=== PATIENT | female | born 1985 | race Caucasian/White ===

== ENCOUNTER → 2016-03-25 | Outpatient (CLI) | payer OTHER ==
--- NOTE | 2016-03-25 16:29 | DX ---
PA and Lateral Chest History: Chronic cough in a 31-year-old female; no previous studies are available for comparison. Findings: The heart and mediastinum are normal. Pulmonary vascularity is normal. The lungs are clear. There is no pleural fluid. A pneumothorax is not identified. Impression: Chest negative for acute abnormality.
== END ==
LOC: FIMAGING 16:00
PROVIDERS: ATTEND Physician Assistant
DX: R05 Cough (principal)

== ENCOUNTER 2016-04-18 13:55 | Emergency (ER) | payer OTHER ==
--- NOTE | 2016-04-18 14:15 | CPEKG ---
Heart Rate: 74 RR Interval: 811 P-R Interval: 152 QRSD Interval: 74 QT Interval: 376 QTC Interval: 418 P Paden: 27 QRS Paden: 37 T Wave Paden: 37 EKG Severity - NORMAL ECG - EKG Impression: SINUS RHYTHM Preliminary Awaiting MD Review
[2016-04-18 14:17] VITALS: TEMP 97.7
[2016-04-18 14:56] LABS: % IMMATURE GRANULYOCYTES 0.2 % (0.0-1.1); ABSOLUTE IMMATURE GRANULOCYTES 0.01 10^3/uL (0.00-0.10); ADD DIFF? NO; ADD MORPH? NO; ADD SCAN? NO; ATYPICAL LYMPHOCYTE FLAG 20 (0-99); FRAGMENT RBC FLAG 0 (0-99); HEMOGLOBIN 13.3 g/dL (12.6-16.3); LEFT SHIFT FLG 0 (0-99); LIPEMIA HEMOLYSIS FLAG 80 (0-99); MEAN CELL HEMOGLOBIN CONCENTR. 33.3 g/dL (32.4-36.7); MEAN CELL VOLUME 90.1 fL (81.5-99.8); MEAN PLATELET VOLUME 11.4 fL (8.7-11.7); PLATELET CLUMPS FLAG 0 (0-99); PLATELET COUNT 241 10^3/uL (150-400); RED BLOOD CELL COUNT 4.44 10^6/uL (4.18-5.33); RED CELL DISTRIBUTION WIDTH 12.8 % (11.5-15.2)
[2016-04-18 15:01] LABS: ANION GAP 15 mEq/L (8-16); CALCIUM 9.1 mg/dL (8.5-10.4); CARBON DIOXIDE 22 mEq/l (22-31); CHLORIDE 99 mEq/L (97-110); CREATININE 0.6 mg/dL (0.6-1.0); GLOMERULAR FILTRATION RATE > 60; GLUCOSE 88 mg/dL (70-100); POTASSIUM 3.6 mEq/L (3.5-5.2); SODIUM 136 mEq/L (134-144)
[2016-04-18] MEDS ORDERED: ASPIRIN 81 MG CHEWABLE TAB ONE (15:19)
[2016-04-18] MEDS ORDERED: ASPIRIN 81 MG CHEWABLE TAB PO ONE (15:22)
--- NOTE | 2016-04-18 16:03 | UCPHY ---
H & P Patient Type: Established Chief Complaint Nursing Narrative: pt reports stabbing chest pain for 30 minutes. pt states pain is in left upper chest and radiates to her shoulder and neck. pt reports SOB and lightheadedness. Source: Patient Exam Limitations: No limitations - Personal History Current Tetanus Diphtheria and Acellular Pertussis (TDAP): Yes Tetanus Vaccine Date: unsure - Medical/Surgical History Hx Asthma: No Hx Chronic Respiratory Disease: No Hx Diabetes: No Hx Cardiac Disease: No Hx Renal Disease: No Hx Cirrhosis: No Hx Alcoholism: No Hx HIV/AIDS: No Hx Splenectomy or Spleen Trauma: No Other PMH: fallopian tube removed - Family History Significant Family History: No pertinent family hx - Social History Smoking Status: Former smoker Alcohol Use: None Drug Use: None Time Seen by Provider: 04/18/16 16:01 HPI/ROS: CHIEF COMPLAINT: chest pain HISTORY OF PRESENT ILLNESS: 31-year-old otherwise healthy female presents emergency department complaining of sudden onset sharp left-sided chest pain that started 30 minutes prior to arrival. Patient reports chest pain was sharp and burning lasting a few seconds and intermittent, patient reports it was worse with movement and a deep breath. She was at work lifting light boxes when it began. Patient reports she then had a panic attack and began hyperventilating and feeling lightheaded. Patient took a Ativan that she had. Patient reports shortly after arrival her pains resolved. She denies abdominal pain, nausea or vomiting, no diarrhea. No fevers. No recent viral illness. Patient reports she has had a chronic cough for several months that was diagnosed as silent reflux, she did not take any medications for this. Patient denies numbness or tingling in her arms, blurred vision, headaches. REVIEW OF SYSTEMS: A comprehensive 10 point review of systems is otherwise negative aside from elements mentioned in the history of present illness. (Dinah Phan) - Physical Exam Exam: Physical Exam Gen: Alert and Oriented, NAD HEENT: PERRL, moist mucous membranes NECK: no meningismus CV: regular rate and regular rhythm Chest wall: Mild left-sided anterior chest wall tenderness to palpation PULM: CTAB, no wheezes ABDOMEN: soft, non tender to palpation, BS present BACK: No CVA tenderness NEURO: Neurologically grossly intact EXTREMITIES: normal appearing SKIN: no rash or break in skin on exposed skin PSYCH: answers questions appropriately. (Dinah Phan) Constitutional: Initial Vital Signs Temperature (C) 36.5 C 04/18/16 14:15 Heart Rate 79 04/18/16 14:15 Respiratory Rate 18 04/18/16 14:15 Blood Pressure 134/91 H 04/18/16 14:15 O2 Sat (%) 100 04/18/16 14:15 O2 Delivery Mode Room Air Allergies/Adverse Reactions: No Known Allergies Allergy (Verified 04/18/16 14:35) Home Medications: Medication Instructions Recorded LEVSIN 04/18/16 Ranitidine HCl [Zantac] 150 mg PO BID #30 tablet 04/18/16 Medical Decision Making - Diagnostics EKG Interpretation: EKG shows normal sinus rhythm, rate 74, normal axis, good R-wave progression, no ST or T-wave abnormalities (Dinah Phan) Imaging: Chest x-ray independently reviewed by me- Impression: Normal. Dictated By: Hesham Casper MD (Dinah Phan) ED Course/Re-evaluation: IV established, CBC, chemistry panel, D-dimer and chest x-ray with EKG obtained. CBC, chemistry panel and D-dimer are all unremarkable, chest x-ray is normal no signs of pneumonia or bronchitis. EKG shows normal sinus rhythm. I think the patient's chest pain is a costochondritis. I have recommended 600 mg of ibuprofen every 8 hours with food for 3-5 days and follow her primary care doctor. She is given strict return precautions return of symptoms, new symptoms or concerns. (Dinah Phan) Differential Diagnosis: The differential diagnosis for the patient's chest pain included but was not limited to myocardial ischemia, pulmonary embolus, chest wall pain, pleural inflammation, and pulmonary infectious causes. (Dinah Phan) Other Provider: The patient was evaluated and managed by the nurse practitioner, Dinah Phan. My co-signature indicates that I have reviewed this chart and I agree with the findings and plan of care as documented. I am the secondary supervising physician.T (Amada Boone) - Data Points Laboratory Results: Laboratory Results 04/18/16 14:20 04/18/16 14:20 04/18/16 04/18/16 04/18/16 14:20 14:20 14:20 WBC RBC Hgb Hct MCV MCH MCHC RDW Plt Count MPV Neut % (Auto) Lymph % (Auto) Webb % (Auto) Eos % (Auto) Baso % (Auto) Nucleat RBC Rel Count Absolute Neuts (auto) Absolute Lymphs (auto) Absolute Monos (auto) Absolute Eos (auto) Absolute Basos (auto) Absolute Nucleated RBC Immature Gran % Immature Gran # D-Dimer 0.44 ug/mLFEU ug/mLFEU (0.00-0.50) Sodium 136 mEq/L mEq/L (134-144) Potassium 3.6 mEq/L mEq/L (3.5-5.2) Chloride 99 mEq/L mEq/L (97-110) Carbon Dioxide 22 mEq/l mEq/l (22-31) Anion Gap 15 mEq/L mEq/L (8-16) BUN 9 mg/dL mg/dL (7-23) Creatinine 0.6 mg/dL mg/dL (0.6-1.0) Estimated GFR > 60 Glucose 88 mg/dL mg/dL (70-100) Calcium 9.1 mg/dL mg/dL (8.5-10.4) Beta HCG, Qual NEGATIVE 04/18/16 14:20 WBC 5.90 10^3/uL 10^3/uL (3.80-9.50) RBC 4.44 10^6/uL 10^6/uL (4.18-5.33) Hgb 13.3 g/dL g/dL (12.6-16.3) Hct 40.0 % % (38.0-47.0) MCV 90.1 fL fL (81.5-99.8) MCH 30.0 pg pg (27.9-34.1) MCHC 33.3 g/dL g/dL (32.4-36.7) RDW 12.8 % % (11.5-15.2) Plt Count 241 10^3/uL 10^3/uL (150-400) MPV 11.4 fL fL (8.7-11.7) Neut % (Auto) 55.0 % % (39.3-74.2) Lymph % (Auto) 35.3 % % (15.0-45.0) Webb % (Auto) 8.5 % % (4.5-13.0) Eos % (Auto) 0.7 % % (0.6-7.6) Baso % (Auto) 0.3 % % (0.3-1.7) Nucleat RBC Rel Count 0.0 % % (0.0-0.2) Absolute Neuts (auto) 3.25 10^3/uL 10^3/uL (1.70-6.50) Absolute Lymphs (auto) 2.08 10^3/uL 10^3/uL (1.00-3.00) Absolute Monos (auto) 0.50 10^3/uL 10^3/uL (0.30-0.80) Absolute Eos (auto) 0.04 10^3/uL 10^3/uL (0.03-0.40) Absolute Basos (auto) 0.02 10^3/uL 10^3/uL (0.02-0.10) Absolute Nucleated RBC 0.00 10^3/uL 10^3/uL (0-0.01) Immature Gran % 0.2 % % (0.0-1.1) Immature Gran # 0.01 10^3/uL 10^3/uL (0.00-0.10) D-Dimer Sodium Potassium Chloride Carbon Dioxide Anion Gap BUN Creatinine Estimated GFR Glucose Calcium Beta HCG, Qual Medications Given: Discontinued Medications Aspirin (Aspirin) 324 mg PO EDNOW ONE Stop: 04/18/16 15:23 Last Admin: 04/18/16 15:22 Dose: 324 mg Ketorolac Tromethamine (Toradol) 15 mg IVP EDNOW ONE Stop: 04/18/16 16:30 Last Admin: 04/18/16 16:35 Dose: 15 mg Departure - Departure Disposition: Home, Routine, Self-Care Clinical Impression: Chest wall pain Condition: Good Instructions: Chest Wall Pain (ED) Additional Instructions: Take 600 mg of ibuprofen every 8 hours with food for 3-5 days, follow up with your primary care doctor this week for re-evaluation, return to Urgent Care or the emergency department for return of symptoms, new symptoms or concerns. Take 150 mg of Zantac twice daily for 2 weeks. Referrals: Janet Maynard PA [Primary Care Provider] - As per Instructions Prescriptions: Ranitidine HCl [Zantac] 150 mg PO BID #30 tablet - PQRS PQRS Measurement: na (Dinah Phan)
[2016-04-18] MEDS ORDERED: KETOROLAC 15 MG/1 ML SDV IVP ONE (16:29)
[2016-04-18 22:53] VITALS: BP 116/72; PULSE 82; RESP 14; O2SAT 96
== END 2016-04-18 17:30 | disposition home or self-care (01) ==
LOC: CED 13:55
DX: R07.89 Other chest pain (principal); R06.02 Shortness of breath; R42 Dizziness and giddiness; Z87.891 Personal history of nicotine dependence
CPT/HCPCS: 71020-PO; 80048-PO; 84703-PO; 85025-PO; 85378-PO; G0463-PO; J1885

== ENCOUNTER 2016-06-25 10:47 | Day surgery (SDC) | payer OTHER ==
[2016-06-25] MEDS ORDERED: LR 1,000 ML IV ONE (12:10)
[2016-06-25] MEDS ORDERED: SURGIFLO MATRIX KIT WITH THROMBIN TP ONE (12:22)
[2016-06-25] MEDS ORDERED: MIDAZOLAM 2 MG/2 ML VIAL ONE (12:22)
[2016-06-25] MEDS ORDERED: BUPIVACAINE 0.25% 30 ML SDV ONE (12:22)
[2016-06-25] MEDS ORDERED: SILVER NITRATE APPLICATOR 1 APPL TP ONE (12:22)
[2016-06-25] MEDS ORDERED: fentaNYL 100 MCG/2 ML INJ ONE ×2 (12:23→14:24)
[2016-06-25] MEDS ORDERED: PROPOFOL 200 MG/20 ML VIAL ONE (12:24)
--- NOTE | 2016-06-25 14:54 | GOP ---
[f rep st] OPERATIVE REPORT DATE OF OPERATION: 06/25/2016 SURGEON: Dorene Cason MD TRAIN CONTROL ELECTRONIC TECHNICIAN: Minal Fields MD. ANESTHESIA: General. PREOPERATIVE DIAGNOSIS: Desires permanent sterilization. POSTOPERATIVE DIAGNOSIS: Desires permanent sterilization. PROCEDURE PERFORMED: Laparoscopic partial left salpingectomy. FINDINGS: 1. Exam under anesthesia revealed an anteverted uterus and no adnexal masses. 1. Intraoperative findings revealed the right tube was absent. The left fallopian tube was adheren t to the large bowel on the left side in the middle of the tube. Therefore, the distal and the prox imal segments of the left tube were excised separately. 2. SPECIMENS: Distal and proximal segment of the left fallopian tube. ESTIMATED BLOOD LOSS: Less than 5 cc. INDICATIONS: Patient is a 31-year-old 4, para 0, abortus 4 (ectopic 1, voluntary abortions 3) female, who desires permanent sterilization. She is in a good relationship, and insists she does not want any children in the future. She has had a history of a prior ectopic wi th a unilateral salpingectomy. She was unsure of which side the ectopic was located. She has decided that she wants permanent sterilization, and declines all other methods of control . She has indicated that if there is a rare occurrence that she did desire children in the future, she would plan to adopt if anything changed. DESCRIPTION OF PROCEDURE: The patient was taken to the operating room, where general anesthesia was found to be adequate. Patient was prepared and draped in normal sterile fashion in the dorsal lith otomy position. A weighted speculum was placed in the patient's vagina, and a Díaz retractor used t o visualize the cervix clearly. A single-toothed tenaculum was placed on the anterior lip of the ce rvix, and a Bella uterine manipulator was placed into the cervix to provide a means to manipulate the uterus. The speculum was then removed, and attention was then turned to the patient's abdomen. Marcaine was injected at all incision sites. A 5 mm vertical skin incision was made in the patient' s umbilicus, and a Veress needle was placed through this incision into the abdominal cavity while te nting the abdominal wall. Intraperitoneal placement was confirmed with use of a water-filled syring e and appropriate entry CO2 gas pressures. The abdomen was then insufflated with CO2 gas to a press ure of 16 mmHg. The Veress needle was removed, and a 5 mm trocar was placed using an Optiview troca r under direct visualization with the camera. Intraperitoneal placement was confirmed. The patient was then placed in Trendelenburg positioning. A 5 mm skin incision was made 2 cm superi or and anterior to the anterior iliac spine on the left side. A 5 mm trocar was placed through this incision into the peritoneal cavity under direct visualization. The trocar was placed in the right side in a similar fashion. The pelvis was surveyed, and the right tube was noted to be absent. Th e left tube was adherent to the bowel in the mid isthmic area. There is not a good surgical plane o f dissection between the tube and the bowel in this area. The fimbria were grasped, and the decisio n was made to excise the distal and proximal ends of the tube separately. The tube was grasped in t he fimbria, and the distal aspect of the tube was excised using the Gyrus PK cautery. This segment of tube was then removed from the patient's abdomen. The proximal segment of tube was then excised separately with the Gyrus, it as it was excised initially by a cross-section across the distalmost p ortion of the tube close to the bowel, and then proceeding with the dissection medially to its attac hment to the uterus. This segment of tube was then removed from the abdomen, and hemostasis was ass ured. Under close observation, there was one 1 cm remaining segment of tube attached to the bowel. Hemostasis was assured. The pelvis was irrigated with copious amounts of normal saline, and hemostasis was visualized. All instruments were then removed from the patient's abdomen under direct visualization. The CO2 gas wa s allowed to escape. All incisions were closed with a subcuticular stitch of 4-0 Monocryl. Steri-S trips and bandage dressings were placed. All vaginal instruments were removed from the patient's vagina, and the tenaculum site was actually hemostatic without silver nitrate needed. All sponge, lap, and needle counts correct x2. Patient w as awoken from anesthesia without any complications. She was transferred to the PACU in stable and good condition. COMPLICATIONS: None. DRAINS: None. URINE OUTPUT: 5 cc. INTRAVENOUS FLUIDS: 750 cc. /[id number]/MODL
[2016-06-25] MEDS ORDERED: OXYCODONE/APAP 5/325 TAB ONE (15:40)
== END 2016-06-25 15:45 | disposition home or self-care (01) ==
LOC: FSGY 10:47
PROVIDERS: ATTEND Obstetrics & Gynecology
PROC: 0UB64ZZ Excision of Left Fallopian Tube, Percutaneous Endoscopic Approach (ICD-10-PCS; principal; 2016-06-25 12:30)
DX: Z30.2 Encounter for sterilization (principal); K58.9 Irritable bowel syndrome, unspecified; Z87.891 Personal history of nicotine dependence
CPT/HCPCS: J2250; J2704; J3010